=== PATIENT | male | born 1945 | race Caucasian/White ===

== ENCOUNTER 2023-02-01 09:45 | Outpatient (CLI) | payer MEDICARE, OTHER | END 2023-02-01 23:59 | disposition critical access hospital (66) | LOC: EMS 09:45 | DX: R42 Dizziness and giddiness (principal) | CPT/HCPCS: A0425; A0429 ==

== ENCOUNTER 2023-02-01 10:26 | Emergency (ER) | payer MEDICARE, OTHER ==
[2023-02-01 11:11] LABS: BASOPHILS # (AUTO) 0.1 10^3/uL (0.0-0.1); BASOPHILS % (AUTO) 1.1 %; EOSINOPHILS # (AUTO) 0.2 10^3/uL (0.0-0.7); EOSINOPHILS % (AUTO) 3.4 %; HCT - HEMATOCRIT 42.8 % (42.0-52.0); HGB - HEMOGLOBIN 14.4 g/dL (14.0-18.0); LYMPHOCYTES # (AUTO) 0.7 10^3/uL (1.5-3.5); LYMPHOCYTES % (AUTO) 14.8 %; MEAN CORPUSCULAR HEMOGLOBIN 33.2 pg (27.0-31.0); MEAN CORPUSCULAR HGB CONC 33.6 g/dL (32.0-36.0); MEAN CORPUSCULAR VOLUME 98.6 fL (80.0-94.0); MEAN PLATELET VOLUME 9.6 fL (7.4-11.4); MONOCYTES # (AUTO) 0.5 10^3/uL (0.0-1.0); MONOCYTES % (AUTO) 9.7 %; NEUTROPHILS # (AUTO) 3.3 10^3/uL (1.5-6.6); NEUTROPHILS % (AUTO) 70.2 %; PLT - PLATELET COUNT 233 10^3/uL (130-450); RED BLOOD COUNT 4.34 10^6/uL (4.70-6.10); RED CELL DISTRIBUTION WIDTH 13.4 % (12.0-15.0); WHITE BLOOD COUNT 4.7 x10^3/uL (4.8-10.8)
[2023-02-01 11:30] LABS: ALBUMIN 4.4 g/dL (3.2-5.5); ALBUMIN/GLOBULIN RATIO 1.6 (1.0-2.2); BILIRUBIN,TOTAL 0.9 mg/dL (0.2-1.0); CALCIUM 9.4 mg/dL (8.5-10.3); CREATININE 1.1 mg/dL (0.6-1.3); POTASSIUM 4.8 mmol/L (3.5-4.5); TOTAL PROTEIN 7.1 g/dL (6.4-8.9)
--- NOTE | 2023-02-01 11:51 | ED Physician Documentation ---
PD HPI FOCAL NEURO - Stated complaint Stated Complaint: DIZZINESS - Chief complaint Chief Complaint: Neuro - History obtained from History obtained from: Patient, Family - Additional information Additional information: 77-year-old gentleman with history of hypertension, hyperlipidemia. 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 He has no specific heart problems and had an episode of dizziness this September worked up in [place] very thoroughly with MRI, carotid imaging, echo, Holter monitoring without pertinent positive findings. Today day at 8 AM he was using the bathr oom and felt a sudden aguilar of vertigo like the room was spinning and like he could not keep focus on anything briefly. Its been waxing and waning since. It is associated with a little ear pressure. He denies weakness, numbness, tingling, or headache. PD PAST MEDICAL HISTORY - Past Medical History Past Medical History: Yes Cardiovascular: Hypertension, High cholesterol Respiratory: None Neuro: TIA Endocrine/Autoimmune: None GI: GERD : None HEENT: None Psych: None Musculoskeletal: Osteoarthritis Derm: None - Past Surgical History Past Surgical History: Yes General: Cholecystectomy - Present Medications Home Medications: Ambulatory Orders Medication Instructions Recorded Confirmed Aspirin EC [Ecotrin] 81 mg PO DAILY 02/01/23 02/01/23 Atorvastatin [Lipitor] 20 mg ORAL DAILY 02/01/23 02/01/23 Lisinopril [Zestril] 20 mg PO DAILY 02/01/23 02/01/23 Multivitamin 1 each PO DAILY 02/01/23 02/01/23 amLODIPine [Norvasc] 5 mg PO DAILY 02/01/23 02/01/23 - Allergies Allergies/Adverse Reactions: Allergies Allergy/AdvReac Type Severity Reaction Status Date / Time Sulfa (Sulfonamide Allergy Rash Verified 02/01/23 10:36 Antibiotics) - Social History Does the pt smoke?: No Smoking Status: Never smoker Does the pt drink ETOH?: Yes ETOH Use: Wine Does the pt have substance abuse?: No - Immunizations Immunizations are current?: Yes PD ED PE NORMAL - Vitals Vital signs reviewed: Yes - General General: Alert and oriented X 3, No acute distress - HEENT HEENT: PERRL, EOMI (He has nystagmus on leftward gaze), Ears normal - Neck Neck: Supple, no meningeal sign, No bony TTP - Cardiac Cardiac: RRR, No murmur - Respiratory Respiratory: No respiratory distress, Clear bilaterally - Abdomen Abdomen: Non tender - Extremities Extremities: No deformity, Normal ROM s pain, No edema, No calf tenderness / cord - Neuro Neuro: Alert and oriented X 3, photo checker and assembler 2-12 intact, No motor deficit, No sensory deficit, Normal speech Eye Opening: Spontaneous Motor: Obeys Commands Verbal: Oriented GCS Score: 15 - Psych Psych: Normal mood, Normal affect NIHSS - Time Time: 11:50 - Level of Consciousness Level of consciousness: (0) Alert, Keenly responsive LOC Questions: (0) Answers both Q's correct LOC Commands: (0) Performs both correctly - Gaze Best Gaze: (0) Normal - Visual Visual: (0) No loss - Facial Palsy Facial Palsy: (0) Normal, symmetrical movement - Motor Arms (both separate) Motor Arm (right): (0) No drift Motor Arm (left): (0) No drift - Motor Legs (both separate) Motor Leg (right): (0) No drift Motor Leg (left): (0) No drift - Limb Ataxia Limb Ataxia: (0) Absent - Sensory Sensory: (0) Normal - Best Language Best Language: (0) No aphasia - Dysarthria Dysarthria: (0) Normal - Extinction and Inattention (formally neg Extinction and inattention: (0) No abnormality - Total Score/Results Total Score/Result: 0 Results - Vitals Vitals: Vital Signs - 24 hr 02/01/23 02/01/23 02/01/23 10:36 11:00 12:07 Temperature 36.6 C Heart Rate 72 73 69 Respiratory 16 22 15 Rate Blood Pressure 155/88 H 146/85 H 137/68 H O2 Saturation 100 99 100 Oxygen O2 Source Room air - EKG (time done) 1031 EKG releavant findings:: EKG personally interpreted by author of this note. Relevant findings are: Rate: Rate (enter#) (60) Rhythm: NSR Hartman: Normal Intervals: Other (LAFB) QRS: LVH Ischemia: Normal ST segments - Labs Labs: Laboratory Tests 02/01/23 02/01/23 11:06 11:06 WBC 4.7 L RBC 4.34 L Hgb 14.4 Hct 42.8 MCV 98.6 H MCH 33.2 H MCHC 33.6 RDW 13.4 Plt Count 233 MPV 9.6 Neut # (Auto) 3.3 Lymph # (Auto) 0.7 L [place] # (Auto) 0.5 Eos # (Auto) 0.2 Baso # (Auto) 0.1 Absolute Nucleated RBC 0.00 Nucleated RBC % 0.0 Sodium 135 Potassium 4.8 H Chloride 104 Carbon Dioxide 26 Anion Gap 5.0 L BUN 20 Creatinine 1.1 Estimated GFR (MDRD) 65 L Glucose 123 H Calcium 9.4 Total Bilirubin 0.9 AST 22 ALT 27 Alkaline Phosphatase 62 Total Protein 7.1 Albumin 4.4 Globulin 2.7 Albumin/Globulin Ratio 1.6 Lipase 48 - Rads (name of study) CT Head Relevant Findings:: Final report received, EMP independent interpretation of test PD Medical Decision Making - ED course Complexity details: reviewed results (CBC demonstrating mild lymphopenia. CMP unremarkable.) ED course: 77-year-old gentleman with what seems like positional vertigo. It definitely worsens especially if he turns his head to the left and he has nystagmus on leftward gaze. I put him through the [place] maneuver after initial evaluation and he had only transient relief but he did have brief relief. Subsequently after some meclizine the [place] maneuver was retried with the right ear down and he did get more relief that time. Departure - Departure Disposition: 01 Home, Self Care Clinical Impression: BPPV (benign paroxysmal positional vertigo) Qualifiers: Laterality: right Qualified Code(s): H81.11 - Benign paroxysmal vertigo, right ear Condition: Good Record reviewed to determine appropriate education?: Yes Instructions: Vertigo Paroxysmal Positional Comments: Follow-up with your doctor and mention this ED visit to her if not better in the next few days. Return for new or worsening symptoms. You can redo the [place] maneuver at home if you become symptomatic again. Start with the right ear down.
[2023-02-01 12:08] VITALS: O2SAT 100
[2023-02-01] MEDS ORDERED: MECLIZINE 12.5 MG TABLET PO STA (12:13)
--- NOTE | 2023-02-01 13:45 | CT Report ---
PROCEDURE: HEAD WO INDICATIONS: vertigo TECHNIQUE: Noncontrast 4.5 mm thick angled axial sections acquired from the foramen magnum to the vertex. For r adiation dose reduction, the following was used: automated exposure control, adjustment of mA and/or kV according to patient size. COMPARISON: None. FINDINGS: Image quality: Excellent. CSF spaces: Basal cisterns are patent. No extra-axial fluid collections. Ventricles are normal in size and shape. Brain: Diffuse peripheral volume loss with expansion of the CSF containing spaces and periventricula r white matter hypodensities consistent with chronic microvascular ischemic disease. No midline shift . No intracranial masses or hemorrhage. Luna-white matter interface is normal. Skull and face: Calvarium and visualized facial bones are intact, without suspicious lesions. Sinuses: Visualized sinuses and mastoids are clear. IMPRESSION: No acute intracranial hemorrhage. Sequelae of chronic microvessel ischemic disease. Reviewed by: Jovanny Celis MD on 02/01/2023 12:44 PM JOSE Approved by: Jovanny Celis MD on 02/01/2023 12:44 PM JOSE Station ID: [id number]
[2023-02-01 14:25] VITALS: BP 129/71
== END 2023-02-01 14:18 | disposition home or self-care (01) ==
LOC: ED 10:26
DX: H81.11 Benign paroxysmal vertigo, right ear (principal); I10 Essential (primary) hypertension
CPT/HCPCS: 36415; 70450; 80053; 83690; 85025; 93005; 99284; A9270

== ENCOUNTER 2024-01-19 13:25 | Emergency (ER) | payer MEDICARE, OTHER ==
--- NOTE | 2024-01-19 14:25 | XRAY Report ---
PROCEDURE: Chest 2V INDICATIONS: productive cough/covid x3 weeks. TECHNIQUE: 2 views of the chest were acquired. COMPARISON: None. FINDINGS: Surgical changes and devices: None. Lungs and pleura: No pleural effusions or pneumothorax. Lungs are clear. Mediastinum: Mediastinal contours appear normal. Heart size is normal. Bones and chest wall: No suspicious bony lesions. Overlying soft tissues appear unremarkable. IMPRESSION: No acute cardiopulmonary process. Reviewed by: Abdelrahman Ren MD on 01/19/2024 2:23 PM PDT Approved by: Abdelrahman Ren MD on 01/19/2024 2:23 PM PDT Station ID: [id number]
[2024-01-19 15:49] LABS: BASOPHILS # (AUTO) 0.1 10^3/uL (0.0-0.1); EOSINOPHILS # (AUTO) 0.3 10^3/uL (0.0-0.7); EOSINOPHILS % (AUTO) 5.3 %; HCT - HEMATOCRIT 41.7 % (42.0-52.0); HGB - HEMOGLOBIN 14.1 g/dL (14.0-18.0); LYMPHOCYTES # (AUTO) 1.3 10^3/uL (1.5-3.5); MEAN CORPUSCULAR HEMOGLOBIN 33.3 pg (27.0-31.0); MEAN CORPUSCULAR HGB CONC 33.8 g/dL (32.0-36.0); MEAN CORPUSCULAR VOLUME 98.6 fL (80.0-94.0); MEAN PLATELET VOLUME 10.7 fL (7.4-11.4); MONOCYTES # (AUTO) 0.7 10^3/uL (0.0-1.0); MONOCYTES % (AUTO) 11.4 %; NEUTROPHILS # (AUTO) 3.6 10^3/uL (1.5-6.6); NEUTROPHILS % (AUTO) 60.5 %; PLT - PLATELET COUNT 209 10^3/uL (130-450); RED BLOOD COUNT 4.23 10^6/uL (4.70-6.10); RED CELL DISTRIBUTION WIDTH 13.7 % (12.0-15.0)
[2024-01-19 15:55] LABS: ALBUMIN 4.6 g/dL (3.2-5.5); ALBUMIN/GLOBULIN RATIO 1.8 (1.0-2.2); BILIRUBIN,TOTAL 0.8 mg/dL (0.2-1.0); CALCIUM 9.9 mg/dL (8.5-10.3); POTASSIUM 4.5 mmol/L (3.5-4.5); TOTAL PROTEIN 7.1 g/dL (6.4-8.9)
--- NOTE | 2024-01-19 16:30 | ED Physician Documentation ---
History of Present Illness - Stated complaint Stated Complaint: POST COVID FATIGUE - Chief complaint Chief Complaint: Resp - History obtained from History obtained from: Patient - History of Present Illness Timing: How many weeks ago (3) Pain level max: 0 Pain level now: 0 - Additonal information Additional information: Patient is an 78-year-old male who presents to the emergency department stating that about 2 weeks ago he was on a cruise and contracted COVID. He states that since that time he has continued to have a cough and is feeling fatigued and tired. Nothing seems to make it better or worse. He had a telehealth visit today and they recommended he come to the emergency department for a chest x-ray to rule out pneumonia. No fevers. No chills. Cough is mostly dry. No abdominal pain. Review of Systems Constitutional: denies: Fever, Chills GI: denies: Vomiting : denies: Dysuria Skin: denies: Rash PD PAST MEDICAL HISTORY - Past Medical History Past Medical History: Yes Cardiovascular: Hypertension, High cholesterol Respiratory: None Neuro: TIA Endocrine/Autoimmune: None GI: GERD : None HEENT: None Psych: None Musculoskeletal: Osteoarthritis Derm: None - Past Surgical History Past Surgical History: Yes General: Cholecystectomy - Present Medications Home Medications: Ambulatory Orders Medication Instructions Recorded Confirmed Aspirin EC [Ecotrin] 81 mg PO DAILY 02/01/23 02/01/23 Atorvastatin [Lipitor] 20 mg ORAL DAILY 02/01/23 02/01/23 Lisinopril [Zestril] 20 mg PO DAILY 02/01/23 02/01/23 Multivitamin 1 each PO DAILY 02/01/23 02/01/23 amLODIPine [Norvasc] 5 mg PO DAILY 02/01/23 02/01/23 Benzonatate [Tessalon] 200 mg PO TID PRN #30 cap 01/19/24 - Allergies Allergies/Adverse Reactions: Allergies Allergy/AdvReac Type Severity Reaction Status Date / Time Sulfa (Sulfonamide Allergy Rash Verified 01/19/24 13:59 Antibiotics) - Social History Does the pt smoke?: No Smoking Status: Never smoker Does the pt drink ETOH?: Yes Does the pt have substance abuse?: No - Immunizations Immunizations are current?: Yes - POLST Patient has POLST: No PD ED PE NORMAL - Vitals Vital signs reviewed: Yes - General General: Alert and oriented X 3, No acute distress - HEENT HEENT: PERRL, Moist mucous membranes - Neck Neck: Supple, no meningeal sign - Cardiac Cardiac: RRR, Strong equal pulses - Respiratory Respiratory: No respiratory distress, Clear bilaterally - Abdomen Abdomen: Soft, Non tender, Non distended - Derm Derm: Warm and dry - Extremities Extremities: No edema - Neuro Neuro: Alert and oriented X 3 - Psych Psych: Normal mood, Normal affect Results - Vitals Vitals: Vital Signs - 24 hr 01/19/24 01/19/24 13:54 16:35 Temperature 36.6 C Heart Rate 75 56 L Respiratory 18 20 Rate Blood Pressure 134/88 H 141/92 H O2 Saturation 99 98 Oxygen O2 Source Room air - Labs Labs: Laboratory Tests 01/19/24 01/19/24 15:32 15:32 WBC 6.0 RBC 4.23 L Hgb 14.1 Hct 41.7 L MCV 98.6 H MCH 33.3 H MCHC 33.8 RDW 13.7 Plt Count 209 MPV 10.7 Neut # (Auto) 3.6 Lymph # (Auto) 1.3 L [place] # (Auto) 0.7 Eos # (Auto) 0.3 Baso # (Auto) 0.1 Absolute Nucleated RBC 0.00 Nucleated RBC % 0.0 Sodium 137 Potassium 4.5 Chloride 104 Carbon Dioxide 29 Anion Gap 4.0 L BUN 20 Creatinine 1.0 Estimated GFR (MDRD) 72 L Glucose 101 Calcium 9.9 Total Bilirubin 0.8 AST 21 ALT 23 Alkaline Phosphatase 55 Total Protein 7.1 Albumin 4.6 Globulin 2.5 Albumin/Globulin Ratio 1.8 Lipase 52 - Rads (name of study) cxr Relevant Findings:: Final report received, See rad report PD Medical Decision Making - ED course Complexity details: reviewed results, re-evaluated patient, considered differential, d/w patient ED course: Patient is very well-appearing, nontoxic. Afebrile. No hypoxia or respiratory distress. Chest x-ray does not show any acute abnormalities. Laboratory testing does not show any significant abnormalities. Patient does not want to have a respiratory swab performed. Likely that he has a secondary viral illness from his cruise or airplane travel. We will prescribe cough medication for home and have him follow-up with his PCP for further care. Patient counseled regarding signs and symptoms for which I believe and urgent re-evaluation would be necessary. Patient with good understanding of and agreement to plan and is comfortable going home at this time This document was made in part using voice recognition software. While efforts are made to proofread this document, sound alike and grammatical errors may occur. Departure - Departure Disposition: Home, Self Care Clinical Impression: Viral URI with cough Condition: Good Instructions: ED Viral Syndrome Follow-Up: your,doctor in 1 week [Other] Prescriptions: Benzonatate [Tessalon] 200 mg PO TID PRN #30 cap PRN Reason: Cough Comments: [facility]. Your respiratory swab will be back later today and we will contact you with the results. Forms: PCP List Discharge Date/Time: 01/19/24 16:37
[2024-01-19 16:44] VITALS: BP 141/92; O2SAT 98
== END 2024-01-19 16:37 | disposition home or self-care (01) ==
LOC: ED 13:25
DX: J06.9 Acute upper respiratory infection, unspecified (principal); I10 Essential (primary) hypertension; E78.00 Pure hypercholesterolemia, unspecified; Z79.82 Long term (current) use of aspirin; Z79.899 Other long term (current) drug therapy
CPT/HCPCS: 36415; 80053; 83690; 85025; 99284